=== PATIENT | female | born 1980 | race African-American/Black ===

== ENCOUNTER 2020-08-30 21:19 | Inpatient (IN) | payer MEDICAID ==
[~2020-08-30] VITALS: Ht 170.2 cm; Wt 103.8 kg
[2020-08-30] MEDS ORDERED: TOPROL XL100 MG PO (21:40)
[2020-08-30 22:09] LABS: LYMPHOCYTE ABS# 2.09 10x3/uL (1.18-3.74); MCH 29.9 pg (26.0-34.0); MCHC 34.1 g/dL (31.0-37.0); MCV 87.6 fL (80.0-100.0); MEAN PLATELET VOLUME 10.7 fL (7.4-10.4); NEUTROPHIL ABS# 1.23 10x3/uL (1.56-6.13); PLATELET COUNT 122 10x3/uL (130-400); RBC 5.02 10x6/uL (4.00-5.40); WBC 3.6 10x3/uL (4.8-10.8)
[2020-08-30 22:14] LABS: BILIRUBIN NEGATIVE (NEGATIVE); KETONE NEGATIVE (NEGATIVE); NITRITE POSITIVE (NEGATIVE); UROBILINOGEN NORMAL mg/dL (< 2); WHITE CELLS - URINE 25-50 HPF (0-4)
[2020-08-30 22:15] LABS: BACTERIA MANY HPF (NONE SEEN); SQUAMOUS EPITHELIAL 0-5 HPF (0-4)
[2020-08-30 22:20] LABS: CALC OSMOLALITY 263 mosm/kg (275-300); CALCIUM 8.3 mg/dL (8.5-10.1); CARBON DIOXIDE 22.9 mmol/L (21.0-32.0); CHLORIDE - SERUM 99 mmol/L (98-107); GLUCOSE 73 mg/dL (74-106); POTASSIUM - SERUM 3.6 mmol/L (3.5-5.1); SODIUM 134 mmol/L (136-145); UREA NITROGEN 5 mg/dL (7-18); eGFR NON AFRICAN AMERICAN 65 mL/min (90-120)
[2020-08-30 22:20] LABS: UDS - AMPHET NEGATIVE QUAL (NEGATIVE); UDS - BARB NEGATIVE QUAL (NEGATIVE); UDS - BENZO NEGATIVE QUAL (NEGATIVE); UDS - COCAINE NEGATIVE QUAL (NEGATIVE); UDS - OPIATE NEGATIVE QUAL (NEGATIVE); UDS - PCP NEGATIVE QUAL (NEGATIVE); UDS - THC POSITIVE QUAL (NEGATIVE)
[2020-08-30 22:21] LABS: APTT 34.4 SECONDS (22.8-39.4); INR 1.55 (0.85-1.17); PROTIME 17.2 SECONDS (11.6-15.0)
[2020-08-30 22:26] LABS: D-DIMER-QUANTITATIVE 2.7 ug/mLFEU (0.20-0.54)
[2020-08-30 22:30] LABS: LYMPHOCYTES 63 % (15-50); MONOCYTES 4 % (2-11); NEUTROPHILS 33 % (40-80); PLATELET ESTIMATE DECREASED
[2020-08-30 22:34] LABS: ALBUMIN 2.8 g/dL (3.4-5.0); ALKALINE PHOSPHATASE 72 U/L (30-120); ALT (SGPT) 27 U/L (10-68); BILIRUBIN - TOTAL 1.29 mg/dL (0.2-1.3); CKMB 0.1 U/L (0.0-3.6); CREATINE KINASE 57 UL (21-215); MAGNESIUM - SERUM 1.7 mg/dL (1.8-2.4); PRO BNP 12868 pg/mL (0-125); PROTEIN - SERUM 7.2 g/dL (6.4-8.2); TROPONIN-I 0.029 ng/mL (0.000-0.060)
[2020-08-30 23:19] VITALS: BP 110/80
[2020-08-30 23:43] LABS: HCG URINE NEGATIVE (NEGATIVE)
--- NOTE | 2020-08-31 01:11 | NUR ---
REPORT TO LATISHA LOZA.
[2020-08-31 01:30] VITALS: BP 104/78
--- NOTE | 2020-08-31 01:45 | NUR ---
PT FROM ER VIA W/C, PT AMBULATED TO BED, PT AAO X 3, RESP EVEN AND UNLABORED, NO DISTRESS NOTED, CL IN REACH, SR UP X 2.
[2020-08-31 03:59] VITALS: BP 116/89
[2020-08-31 07:36] LABS: ALBUMIN 2.7 g/dL (3.4-5.0); ALKALINE PHOSPHATASE 67 U/L (30-120); ALT (SGPT) 24 U/L (10-68); BILIRUBIN - TOTAL 1.16 mg/dL (0.2-1.3); CALC OSMOLALITY 267 mosm/kg (275-300); CALCIUM 8.4 mg/dL (8.5-10.1); CARBON DIOXIDE 23.5 mmol/L (21.0-32.0); CHLORIDE - SERUM 102 mmol/L (98-107); CHOL - HDL RATIO 1.4 ratio (2.3-4.1); CHOLESTEROL, TOTAL 63 mg/dL (0-200); CKMB 0.1 U/L (0.0-3.6); CREATINE KINASE 51 UL (21-215); CREATININE - SERUM 0.9 mg/dL (0.6-1.3); GLUCOSE 61 mg/dL (74-106); HDL CHOLESTEROL 44 mg/dL (32-96); MAGNESIUM - SERUM 1.7 mg/dL (1.8-2.4); PHOSPHOROUS 3.8 mg/dL (2.5-4.9); POTASSIUM - SERUM 3.9 mmol/L (3.5-5.1); PROTEIN - SERUM 6.7 g/dL (6.4-8.2); SODIUM 136 mmol/L (136-145); TRIGLYCERIDE 115 mg/dL (30-200); TROPONIN-I 0.029 ng/mL (0.000-0.060); UREA NITROGEN 6 mg/dL (7-18); eGFR NON AFRICAN AMERICAN 73 mL/min (90-120)
[2020-08-31 07:59] LABS: BASOPHILS 0.3 % (0-2); EOSINOPHILS 0.3 % (0-7); HEMATOCRIT 41.2 % (36.0-48.0); HEMOGLOBIN 14.3 g/dL (12-16); LYMPHOCYTE ABS# 1.56 10x3/uL (1.18-3.74); LYMPHOCYTES 49.7 % (15-50); MCHC 34.7 g/dL (31.0-37.0); MCV 86.4 fL (80.0-100.0); MEAN PLATELET VOLUME 11.4 fL (7.4-10.4); MONOCYTES 7.6 % (2-11); NEUTROPHIL ABS# 1.32 10x3/uL (1.56-6.13); NEUTROPHILS 42.1 % (40-80); PLATELET COUNT 124 10x3/uL (130-400); RBC 4.77 10x6/uL (4.00-5.40); RDW 15.7 % (11.5-14.5); WBC 3.1 10x3/uL (4.8-10.8)
[2020-08-31 08:00] VITALS: BP 112/85
[2020-08-31 12:00] VITALS: BP 102/78
[2020-08-31 12:32] VITALS: Ht 170.2 cm; Wt 103.8 kg
[2020-08-31 15:00] VITALS: BP 112/70
--- NOTE | 2020-08-31 20:15 | NUR ---
INITIAL ROUNDS COMPLETED AT 1915 HRS. NO DISTRESS NOTED. TYLENOL 650MG PO GIVEN FOR C/O DEAN. ASSESSMENT COMPLETED AT 2005 HRS. PT STATED DEAN PAIN LEVEL SOEN TO 6. IV TO RFA SL. ALERT AND ORIENTED TO PERSON, PLACE AND TIME. BAUGH. LUNGS DIMINISHED IN BASES BILAT. ABD SOFT WITH ACTIVE BS NOTED. 1+ EDEMA TO L FOOT, TRACE EDEMA TO R FOOT. SR PER CM HR 79. CALL LIGHT WITHIN REACH.
--- NOTE | 2020-08-31 21:25 | NUR ---
VSS. PM MEDS GIVEN. CALL LIGHT WITHIN REACH.
[2020-08-31 21:54] VITALS: BP 117/87
--- NOTE | 2020-08-31 23:46 | NUR ---
NO CHANGES IN STATUS NOTED. CALL LIGHT WITHIN REACH.
[2020-09-01 00:52] VITALS: BP 101/70
--- NOTE | 2020-09-01 01:37 | NUR ---
PT RESTING WITH EYES CLOSED. RESP EVEN AND REGULAR. CALL LIGHT WITHIN REACH.
--- NOTE | 2020-09-01 04:08 | NUR ---
PT RESTING WITH EYES CLOSED. RESP EVEN AND REGULAR. CALL LIGHT WITHIN REACH.
[2020-09-01 05:18] VITALS: BP 105/73
[2020-09-01 05:53] LABS: BASOPHILS 0.3 % (0-2); EOSINOPHILS 0.7 % (0-7); HEMATOCRIT 41.4 % (36.0-48.0); HEMOGLOBIN 13.9 g/dL (12-16); LYMPHOCYTES 72.1 % (15-50); MCH 29.3 pg (26.0-34.0); MCHC 33.6 g/dL (31.0-37.0); MCV 87.3 fL (80.0-100.0); MEAN PLATELET VOLUME 11.2 fL (7.4-10.4); MONOCYTES 5.9 % (2-11); NEUTROPHIL ABS# 0.64 10x3/uL (1.56-6.13); PLATELET COUNT 120 10x3/uL (130-400); RBC 4.74 10x6/uL (4.00-5.40); RDW 15.9 % (11.5-14.5); WBC 3.1 10x3/uL (4.8-10.8)
--- NOTE | 2020-09-01 06:01 | NUR ---
VSS THROUGHOUT NIGHT. PT STATED TYLENOL HELPED DEAN. NEEDS MET; WILL CONTINUE TO MONITOR.
[2020-09-01 06:17] LABS: ANION GAP 11.6 mmol/L (8-16); CALCIUM 8.2 mg/dL (8.5-10.1); CARBON DIOXIDE 26.5 mmol/L (21.0-32.0); CREATININE - SERUM 1.1 mg/dL (0.6-1.3); MAGNESIUM - SERUM 1.5 mg/dL (1.8-2.4); PHOSPHOROUS 3.5 mg/dL (2.5-4.9); POTASSIUM - SERUM 4.1 mmol/L (3.5-5.1)
[2020-09-01 07:00] VITALS: BP 116/94
--- NOTE | 2020-09-01 08:40 | NUR ---
AM MEDS GIVEN AT THIS TIME. PT IN BED, WATCHING TV. A/O X4, RESP EVEN AND NONLABORED ON RA. RT FA IV SL. PT DENIES ANY NEEDS AT THIS TIME. CALL LIGHT IN REACH, WILL CONTINUE PLAN OF CARE.
--- NOTE | 2020-09-01 12:00 | NUR ---
PT RESTING COMFORTABLY IN BED, PROVIDED PT WITH CUP OF ICE WATER AND 650MG OF TYLENOL FOR PAIN LEVEL OF 6/10. PT DENIES ANY OTHER NEEDS AT THIS TIME. CALL LIGHT IN REACH.
--- NOTE | 2020-09-01 12:24 | NUR ---
TALKED TO PT'S SON, UPDATED HIM ON THE PLAN OF CARE AND THE HOLD UP ON PT BEING DISCHARGED.
[2020-09-01 15:55] VITALS: BP 108/86
[2020-09-01 20:00] VITALS: BP 108/77
[2020-09-02] VITALS: BP 109/84
[2020-09-02 05:05] LABS: HEMOGLOBIN 14.2 g/dL (12-16); LYMPHOCYTE ABS# 1.77 10x3/uL (1.18-3.74); MCH 29.7 pg (26.0-34.0); MCHC 33.8 g/dL (31.0-37.0); MCV 87.9 fL (80.0-100.0); MEAN PLATELET VOLUME 11.2 fL (7.4-10.4); NEUTROPHIL ABS# 0.84 10x3/uL (1.56-6.13); PLATELET COUNT 122 10x3/uL (130-400); RBC 4.78 10x6/uL (4.00-5.40); RDW 15.8 % (11.5-14.5); WBC 2.8 10x3/uL (4.8-10.8)
--- NOTE | 2020-09-02 05:09 | NUR ---
I have reviewed this patient and I concur with the Shift Assessment completed by the Licensed Practical Nurse today this shift.
[2020-09-02 05:22] LABS: EOSINOPHILS 1 % (0-7); LYMPHOCYTES 64 % (15-50); MONOCYTES 4 % (2-11); NEUTROPHILS 23 % (40-80); PLATELET ESTIMATE NORMAL
[2020-09-02 06:14] LABS: CALCIUM 8.3 mg/dL (8.5-10.1); CARBON DIOXIDE 29.2 mmol/L (21.0-32.0); CREATININE - SERUM 1.2 mg/dL (0.6-1.3); MAGNESIUM - SERUM 1.6 mg/dL (1.8-2.4); PHOSPHOROUS 3.4 mg/dL (2.5-4.9); POTASSIUM - SERUM 4.2 mmol/L (3.5-5.1)
[2020-09-02 07:00] VITALS: BP 118/86
--- NOTE | 2020-09-02 07:15 | NUR ---
INITIAL ROUNDS- PT RESTING COMFORTABLY IN BED WITH EYES CLOSED. RESP EVEN AND NONLABORED ON RA. RT FA IV SL. SR- 80 ON TELEMETRY. CALL LIGHT IN REACH.
[2020-09-02] MEDS ORDERED: TOPROL XL50 MG PO (11:31)
[2020-09-02] MEDS ORDERED: ALDACTONE25 MG PO (11:31)
[2020-09-02] MEDS ORDERED: XOPENEX 1.1.25 MG/3 UPD (11:31)
[2020-09-02] MEDS ORDERED: LASIX40 MG PO (11:32)
[2020-09-02] MEDS ORDERED: LISINOPRIL2.5 MG PO (11:32)
[2020-09-02] MEDS ORDERED: K-DUR20 MEQ PO (11:32)
[2020-09-02] MEDS ORDERED: PROTONIX40 MG PO (11:32)
--- NOTE | 2020-09-02 12:14 | MORECARE ---
CASE MANAGEMENT DISCHARGE SUMMARY PATIENT: NEL LAZAR UNIT: [id number] ADM DATE: 08/30/20 AGE: 40 : 79 SEX: F ROOM/BED: D.2113 AUTHOR: YANE CISNEROS PHYSICIAN: REFERRING PHYSICIAN: IKER HOOKS MD DATE OF SERVICE: 09/02/20 Discharge Plan Patient Name: NEL LAZAR Facility: [facility]:[place] : 1980 Planned Disposition: Home Anticipated Discharge Date: 09/02/20 Discharge Date: Expected LOS: 3 Initial Reviewer: [email or web address] Initial Review Date: 08/31/2020 Generated: 09/02/20 1:13 pm Patient Name: NEL LAZAR Page [id number] at 1214 All edits/amendments must be made on the electronic document DICTATION DATE: 09/02/20 1213 PRODUCTION TECHNOLOGIST: DONNA 09/02/20 1213 RPT#: [id number] DC DATE: STATUS: ADM IN [facility] [address] [place] [address] END OF REPORT
--- NOTE | 2020-09-02 12:20 | MORECARE ---
CASE MANAGEMENT DISCHARGE SUMMARY PATIENT: NEL RUSH UNIT: [id number] ADM DATE: 08/30/20 AGE: 40 : 78 SEX: F ROOM/BED: D.7713 AUTHOR: BLAYNE,DOC PHYSICIAN: REFERRING PHYSICIAN: IKER HOOKS MD DATE OF SERVICE: 09/02/20 Discharge Plan Patient Name: NEL RUSH Facility: [facility]:[place] : 1980 Planned Disposition: Home Anticipated Discharge Date: 09/02/20 Discharge Date: Expected LOS: 3 Initial Reviewer: [email or web address] Initial Review Date: 08/31/2020 Generated: 09/02/20 1:19 pm Comments DCP- Discharge Planning Updated by [email or web address]: Zach Rosenthal on 09/02/20 11:[address] CM met with patient to complete DC plan and to evaluate needs. Patient lives independently with her family. At discharge, the patient plans to return home and feels this is a safe discharge. Patient requested information on PCPs that take Medicaid in this area. Healthy connections handout given to patient. CM discussed availability of home health, rehab services, and medical equipment. Patient declined HHS, SNF, IPR, and DME. Patient voiced no other needs at this time and is satisfied with DC plan. Transportation provider at discharge will be with her mother Brendon Rush ([facility]) [phone]. CM will continue to follow and will assist as needed with dc plans/needs. DCPIA - Discharge Planning Initial Assessment Updated by [email or web address]: Zach Rosenthal on 09/02/20 12:14 pm * Is the patient Alert and Oriented? Yes * How many steps to enter\exit or inside your home? MULTIPLE * PCP NONE * Pharmacy [facility] [address] * Preadmission Environment Home with Family * ADLs Independent * Equipment None * Other Equipment n/a * List name and contact numbers for known caregivers / representatives who currently or will assist patient after discharge: BRENDON RUSH ([facility]) [phone] * Verbal permission to speak to the caregivers and representatives has been obtained from the patient. Yes * Community resources currently utilized None * Please name any agencies selected above. n/a * Additional services required to return to the preadmission environment? No * Can the patient safely return to the preadmission environment? Yes * Has this patient been hospitalized within the prior 30 days at any hospital? No Last DP export: 09/02/20 11:14 am Patient Name: NEL RUSH Page [id number] at 1220 All edits/amendments must be made on the electronic document DICTATION DATE: 09/02/20 1220 ILLUMINATOR: DONNA 09/02/20 1220 RPT#: [id number] DC DATE: STATUS: ADM IN [facility] [address] [place] [address] END OF REPORT
--- NOTE | 2020-09-02 12:38 | NUR ---
PER DR. JA LOUIS FOR PT TO D/C.
--- NOTE | 2020-09-02 12:39 | NUR ---
PT RESTING COMFORTABLY IN BED, DENIES ANY NEEDS. CALL LIGHT IN REACH.
[2020-09-02] MEDS ORDERED: OMNICEF300 MG PO (13:38)
--- NOTE | 2020-09-02 14:04 | NUR ---
PROVIDED VERBAL AND WRITTEN DISCHARGE TEACHING TO PT, WHO VERBALIZED UNDERSTANDING REGARDING TEACHING. D/C RT FA IV WITH CATHETER TIP INTACT, D/C HEART MONITOR AND TAKEN TO FILLER ROOM ATTENDANT. PT WAITING ON RIDE, WILL NOTIFY NURSE WHEN READY FOR WHEELCHAIR.
--- NOTE | 2020-09-02 15:00 | EC ---
PATIENT:NEL LAZAR DATE OF SERVICE: 08/30/20 SEX: F MEDICAL RECORD: [id number] DATE OF : [birth year] LOCATION:D.M2 D.211 AGE OF PATIENT: 40 ADMISSION DATE: 08/30/20 REFERRING PHYSICIAN: INTERPRETING PHYSICIAN: CRISTIAN RICHMOND MD ECHOCARDIOGRAM REPORT ECHO CHARGES 4 ECHO COMPLETE Date: 08/31/20 CLINICAL DIAGNOSIS: CHF ECHOCARDIOGRAPHIC MEASUREMENTS (adult normal given) AC root (d.<3.7cm) 3.4 cm LV Septum d (<1.2 cm> 1.1 cm Valve Excursion 2.0 cm LV Septum (systole) 1.8 cm Left Atria (s.<4.0cm> 4.1 cm LVPW d(<1.2cm) 0.8 cm RV (d.<2.3cm) 3.3 cm LVPW (sytole) 1.0 cm LV diastole(<5.6CM) 5.2 cm MV E-F(>70mm/sec) cm LV systole 3.8 cm LVOT Diameter 1.7 cm MV exc.(>10mm) 1.4 cm Est.ejection fraction (50-75%) % DOPPLER: LVIT cm/sec A 67 cm/sec E 43 cm/sec LA cm/sec RVSP 26 mmHg LVOT 96 cm/sec AOP1/2T m/s Asc. Ao 75 cm/sec RVOT 35 cm/sec RA cm/sec PA 56 cm/sec AV Gradient Peak 2.3 mmHg AV Mean 1.6 mmHg AV Area 2.8 cm MV Gradient Peak 2.5 mmHg MV Mean 2.8 mmHg MV Area cm COMMENTS: Sericulturist: Siri BLANCO Database Admin: 5 Dr. [place] TAPE# Pericardial Effusion N DATE OF SERVICE: CLINICAL HISTORY: CHF. INTERPRETATION: Normal LV chamber size with severe global LV contractile dysfunction, ejection fraction approximately 20% to 25%. Left atrial chamber enlargement. Right atrial chamber enlargement. Right ventricular chamber enlarged with reduced RV systolic function. ICD lead visualized in right heart chamber. Aortic valve not well visualized. Mitral valve appears normal. Mild mitral regurgitation. Tricuspid valve appears normal. Severe tricuspid ECHOCARDIOGRAM REPORT [id number] NEL LAZAR regurgitation. Pulmonic valve is not well visualized. No pericardial effusion visualized. IMPRESSION: 1. Normal left ventricular chamber size with severe global left ventricular contractile dysfunction with ejection fraction approximately 20% to 25%. 2. Left atrial chamber enlargement. 3. Right atrial chamber enlargement. 4. Right ventricular chamber dilatation with reduced contractile function. ICD lead visualized. TRANSINT:[id number] Voice Confirmation ID: [id number] DOCUMENT ID: [id number] CRISTIAN RICHMOND MD at 1500 CC: [id number] DICTATION DATE: 09/01/20 1252 POWER AND RECOVERY SHIFT ENGINEER: 09/01/20 1350 ADM IN [place] [id number] [place] [id number]
--- NOTE | 2020-09-02 15:28 | NUR ---
PT LEFT UNIT VIA WHEELCHAIR, WITH ALL BELONGINGS, NAD NOTED.
--- NOTE | 2020-09-03 07:52 | MORECARE ---
CASE MANAGEMENT DISCHARGE SUMMARY PATIENT: NEL RUSH UNIT: [id number] ADM DATE: 08/30/20 AGE: 40 : 78 SEX: F ROOM/BED: D.7293 AUTHOR: BLAYNE,DOC PHYSICIAN: REFERRING PHYSICIAN: IKER HOOKS MD DATE OF SERVICE: 09/03/20 Discharge Plan Patient Name: NEL RUSH Facility: [facility]:[place] : 1980 Planned Disposition: Home Anticipated Discharge Date: 09/02/20 Discharge Date: 09/02/2020 Expected LOS: 3 Initial Reviewer: [email or web address] Initial Review Date: 08/31/2020 Generated: 09/03/20 8:51 am Comments DCP- Discharge Planning Updated by [email or web address]: Zach Rosenthal on 09/02/20 11:[address] CM met with patient to complete DC plan and to evaluate needs. Patient lives independently with her family. At discharge, the patient plans to return home and feels this is a safe discharge. Patient requested information on PCPs that take Medicaid in this area. Healthy connections handout given to patient. CM discussed availability of home health, rehab services, and medical equipment. Patient declined HHS, SNF, IPR, and DME. Patient voiced no other needs at this time and is satisfied with DC plan. Transportation provider at discharge will be with her mother Brendon Rush ([facility]) [phone]. CM will continue to follow and will assist as needed with dc plans/needs. DCPIA - Discharge Planning Initial Assessment Updated by [email or web address]: Zach Rosenthal on 09/02/20 12:14 pm * Is the patient Alert and Oriented? Yes * How many steps to enter\exit or inside your home? MULTIPLE * PCP NONE * Pharmacy [facility] [address] * Preadmission Environment Home with Family * ADLs Independent * Equipment None * Other Equipment n/a * List name and contact numbers for known caregivers / representatives who currently or will assist patient after discharge: BRENDON RUSH ([facility]) [phone] * Verbal permission to speak to the caregivers and representatives has been obtained from the patient. Yes * Community resources currently utilized None * Please name any agencies selected above. n/a * Additional services required to return to the preadmission environment? No * Can the patient safely return to the preadmission environment? Yes * Has this patient been hospitalized within the prior 30 days at any hospital? No Last DP export: 09/02/20 11:20 am Patient Name: NEL RUSH Page [id number] at 0752 All edits/amendments must be made on the electronic document DICTATION DATE: 09/03/20751 ANALYTICAL TECH: DONNA 09/03/20751 RPT#: [id number] DC DATE:09/02/20 STATUS: DIS IN [facility] [address] [place] [address] END OF REPORT
== END 2020-09-02 15:29 | disposition home or self-care (01) | DRG 292 ==
LOC: D.ER 21:19 → D.M2 23:19 → D.EDHOLD 23:19 → D.M2 08-31 01:02
PROVIDERS: Family Medicine; ADMIT Family Medicine; ATTEND Family Medicine
DX: I11.0 Hypertensive heart disease with heart failure (principal); Z68.41 Body mass index [BMI] 40.0-44.9, adult; N39.0 Urinary tract infection, site not specified; I50.33 Acute on chronic diastolic (congestive) heart failure; E66.01 Morbid (severe) obesity due to excess calories

== ENCOUNTER 2020-12-17 12:47 | Observation (INO) | payer MEDICAID ==
[~2020-12-17] VITALS: Ht 170.2 cm; Wt 80.7 kg
[~2020-12-17 12:47] MED LIST: ALDACTONE25 MG PO; K-DUR20 MEQ PO; LASIX40 MG PO; LISINOPRIL2.5 MG PO; OMNICEF300 MG PO; PROTONIX40 MG PO; TOPROL XL100 MG PO; TOPROL XL50 MG PO; XOPENEX 1.1.25 MG/3 UPD
--- NOTE | 2020-12-17 13:30 | NUR ---
ICD INTERROGATION PERFORMED. SET TO TRANSMIT TO [facility].
[2020-12-17 13:49] LABS: HEMOGLOBIN 14.6 g/dL (12-16); WBC 3.7 10x3/uL (4.8-10.8)
[2020-12-17 13:52] LABS: BASOPHILS 0.3 % (0-2); EOSINOPHILS 0.8 % (0-7); MCH 31.8 pg (26.0-34.0); MCHC 32.5 g/dL (31.0-37.0); MEAN PLATELET VOLUME 10.5 fL (7.4-10.4); MONOCYTES 11.2 % (2-11); NEUTROPHILS 50.7 % (40-80); PLATELET COUNT 109 10x3/uL (130-400); RBC 4.59 10x6/uL (4.00-5.40); RDW 17.4 % (11.5-14.5)
[2020-12-17 14:00] LABS: CALC OSMOLALITY 280 mosm/kg (275-300); CALCIUM 9.4 mg/dL (8.5-10.1); CARBON DIOXIDE 28.7 mmol/L (21.0-32.0); CHLORIDE - SERUM 105 mmol/L (98-107); CREATININE - SERUM 0.9 mg/dL (0.6-1.3); GLUCOSE 99 mg/dL (74-106); POTASSIUM - SERUM 3.6 mmol/L (3.5-5.1); SODIUM 141 mmol/L (136-145); UREA NITROGEN 13 mg/dL (7-18); eGFR NON AFRICAN AMERICAN 73 mL/min (90-120)
[2020-12-17 14:16] LABS: ALBUMIN 3.3 g/dL (3.4-5.0); ALKALINE PHOSPHATASE 83 U/L (30-120); ALT (SGPT) 45 U/L (10-68); BILIRUBIN - TOTAL 1.05 mg/dL (0.2-1.3); CKMB 0.1 U/L (0.0-3.6); CREATINE KINASE 37 UL (21-215); MAGNESIUM - SERUM 1.7 mg/dL (1.8-2.4); PROTEIN - SERUM 7.4 g/dL (6.4-8.2)
[2020-12-17 14:19] LABS: TROPONIN-I < 0.017 ng/mL (0.000-0.060)
--- NOTE | 2020-12-17 14:30 | NUR ---
NO COMMUNICATION FROM [employer] ON INTERROGATION. INTERROGATION REPEATED AND ATTEMPTED TRANSMISSION. FAILED CONNECTION TO [facility]. [employer] NOTIFIED. STATE A APPAREL STOCK CHECKER WILL BE ARRIVING IN 15 MINUTED.
[2020-12-17 15:59] VITALS: Ht 170.2 cm; Wt 80.7 kg
--- NOTE | 2020-12-17 16:02 | NUR ---
[employer] SKI TECHNICIAN COMPLETED INTERROGATION. STATES 27 EVENTS SINCE LAST INTERROGATION MAY 2019. DENIS MORTENSEN AT BEDSIDE. PLAN TO ADMIT TO HOSPITAL TO DR. JULIAN WITH CONSULT FROM CARDIOLOGY.
[2020-12-17 19:20] VITALS: BP 126/99
[2020-12-17 19:29] LABS: CKMB 0.3 U/L (0.0-3.6); CREATINE KINASE 39 UL (21-215); TROPONIN-I < 0.017 ng/mL (0.000-0.060)
[2020-12-17 21:15] VITALS: BP 119/88
[2020-12-17 21:30] VITALS: BP 127/96
[2020-12-17 22:00] VITALS: BP 119/80
[2020-12-17 23:00] VITALS: BP 92/56
[2020-12-18] VITALS: BP 105/77
[2020-12-18 01:00] VITALS: BP 107/72
[2020-12-18 02:00] VITALS: BP 126/93
[2020-12-18 02:41] LABS: CKMB 0.4 U/L (0.0-3.6); CREATINE KINASE 33 UL (21-215)
[2020-12-18 02:43] LABS: TROPONIN-I < 0.017 ng/mL (0.000-0.060)
[2020-12-18 08:04] LABS: CKMB 0.1 U/L (0.0-3.6); CREATINE KINASE 39 UL (21-215); TROPONIN-I < 0.017 ng/mL (0.000-0.060)
[2020-12-18 11:36] VITALS: BP 132/96
[2020-12-18] MEDS ORDERED: PROTONIX40 MG PO (18:24)
[2020-12-18] MEDS ORDERED: METOPROLOL TART50 MG PO (18:24)
[2020-12-18] MEDS ORDERED: LISINOPRIL5 MG PO (18:24)
[2020-12-18] MEDS ORDERED: K-DUR20 MEQ PO (18:24)
[2020-12-18] MEDS ORDERED: ALDACTONE25 MG PO (18:24)
[2020-12-18] MEDS ORDERED: LASIX40 MG PO (18:24)
== END 2020-12-18 18:41 | disposition home or self-care (01) ==
LOC: D.ER 12:47 → D.EDHOLD 17:43 → OBSVTIME 17:44 → D.EDHOLD 12-18 18:41
PROVIDERS: Family Medicine; ADMIT Legal Medicine; ATTEND Legal Medicine
DX: I11.0 Hypertensive heart disease with heart failure (principal); I50.33 Acute on chronic diastolic (congestive) heart failure; R55 Syncope and collapse; Z72.0 Tobacco use